=== PATIENT | male | born 1960 | race Asian ===

== ENCOUNTER → 2021-04-21 | Outpatient (CLI) | payer OTHER ==
[2021-03-13 15:37] VITALS: BP 140/89
--- NOTE | 2021-03-24 10:04 | RAD ---
EXAM: Right small toe, 3 views. HISTORY: Pain. COMPARISON: 03/13/2021 FINDINGS: 3 views of the right fifth toe are obtained. There is no fifth toe middle phalanx. This is a normal variant. There has been interval reduction of the fifth interphalangeal joint into anatomic alignment. There is cortical irregularly involving the medial proximal aspect of the fifth proximal p halanx which may be due to a healed fracture. There is a tiny ossicle calcification overlying the fou rth metatarsal phalangeal joint. There is persistent soft tissue swelling involving the fifth toe. IMPRESSION: 1. Interval reduction of the fifth interphalangeal joint into anatomic alignment. 2. Cortical irregularity involving the medial proximal aspect of the fifth proximal phalanx. The imag ing appearance favors a healed fracture. However, given persistent soft tissue swelling, the possibil ity of a minimally displaced acute fracture is not excluded. Correlate for pain in this location. Electronically signed by: Lisa Inman MD (03/24/2021 10:01 AM) [id number]
[~2021-04-21] MED LIST: CEPH500T PO; HYDR-2761 PO
== END ==
LOC: PMGORTHO 14:36
PROVIDERS: ATTEND Podiatrist
DX: S91.109A Unspecified open wound of unspecified toe(s) without damage to nail, initial encounter (principal); X58.XXXA Exposure to other specified factors, initial encounter; Y93.89 Activity, other specified; Y92.89 Other specified places as the place of occurrence of the external cause; Y99.8 Other external cause status
CPT/HCPCS: 87075; 87077